=== PATIENT | male | born 1960 | race Caucasian/White ===

== ENCOUNTER 2018-10-07 09:07 | Outpatient (REF) | payer BC, SELFPAY ==
[2018-10-07 20:16] LABS: HCT 43.3 % (40.0-50.0); HGB 15.4 g/dL (13.5-17.5); Mean Corp. HGB Concentration 35.6 g/dL (32.0-36.0); Mean Corpuscular Hemoglobin 29.8 pg (27.0-33.0); Mean Corpuscular Volume 83.9 fL (80-95); Platelet Count 238 x1000/uL (130-400); RBC 5.16 m/cumm (4.50-6.00); RBC Distribution Width 12.8 % (11.8-14.1)
[2018-10-07 20:32] LABS: COMMENT (LAB VIEW ONLY) 46.88 mg/dL; Microalb ug/mg Crea 11.5 ug/mg Cr
[2018-10-07 20:36] LABS: Anion Gap 6.2 mmol/L (3-11); BUN 15 mg/dL (7-18); CO2 30.8 mmol/L (21.0-32.0); CREATININE 0.92 mg/dL (0.70-1.30); Calcium 8.9 mg/dL (8.5-10.1); Chloride 105 mmol/L (98-107); Glucose 87 mg/dL (70-100); Potassium 4.3 mmol/L (3.5-5.1); Sodium 142 mmol/L (136-145)
== END 2018-10-07 09:27 ==
LOC: NCHCN 09:07
PROVIDERS: PCP Physician Assistant; Visit Provider Physician Assistant Medical
DX: I10 Essential (primary) hypertension (principal)
CPT/HCPCS: 80048; 85027; 82043; 82570; 84443

== ENCOUNTER 2019-11-01 10:26 | Outpatient (REF) | payer BC, SELFPAY ==
[2019-11-01 19:22] LABS: Abs Immature Grans 0.04 k/cumm (0.0-0.09); Absolute Basophil Count 0.04 k/cumm (0.0-0.2); Absolute Eosinophil Count 0.11 k/cumm (0.0-0.7); Absolute Lymphocyte Count 1.72 k/cumm (1.2-3.4); Absolute Monocyte Count 0.56 k/cumm (0.11-0.7); Absolute Neutrophil Count 3.66 k/cumm (1.2-6.7); Basophils % 0.7; Eosinophils % 1.8; HCT 43.4 % (40.0-50.0); HGB 15.2 g/dL (13.5-17.5); Immature Grans % 0.7 %; Lymphocytes % 28.1; Mean Corpuscular Hemoglobin 29.9 pg (27.0-33.0); Mean Corpuscular Volume 85.3 fL (80-95); Mean Platelet Volume 9.8 fL (8.0-11.0); Monocytes % 9.1; Neutrophils % 59.6; Platelet Count 257 x1000/uL (130-400); RBC 5.09 m/cumm (4.50-6.00); RBC Distribution Width 12.6 % (11.8-14.1); White Blood Cell Count 6.13 k/cumm (4.4-10.8)
[2019-11-01 19:31] LABS: ALT 24 U/L (16-63); AST 18 U/L (15-37); Albumin 3.9 g/dL (3.4-5.0); Alkaline Phosphatase 57 U/L (46-116); Anion Gap 8.8 mmol/L (3-11); BUN 15 mg/dL (7-18); Bilirubin, Total 0.4 mg/dL (0.2-1.0); CO2 29.2 mmol/L (21.0-32.0); CREATININE 0.91 mg/dL (0.70-1.30); Calcium 8.7 mg/dL (8.5-10.1); Calculated LDL 115 mg/dL; Chloride 106 mmol/L (98-107); Cholesterol 175 mg/dL (<200); Glucose 89 mg/dL (74-106); HDL Cholesterol 38 mg/dL (40-60); Potassium 4.7 mmol/L (3.5-5.1); Sodium 144 mmol/L (136-145); Total Protein 7.2 g/dL (6.4-8.2); Triglyceride 112 mg/dL (<150)
== END 2019-11-01 10:46 ==
LOC: NCHCN 10:26
PROVIDERS: PCP Physician Assistant; Visit Provider Physician Assistant
DX: Z00.00 Encounter for general adult medical examination without abnormal findings (principal); I10 Essential (primary) hypertension; M17.0 Bilateral primary osteoarthritis of knee
CPT/HCPCS: 80053; 80061; 85025

== ENCOUNTER 2019-11-22 09:58 | Day surgery (SDC) | payer BC, SELFPAY ==
--- NOTE | 2019-11-22 07:13 | W.COLOREPORT ---
Date of service: 11/22/19 Time of Service: 11:48 Colonoscopy Report Date of procedure: 11/22/19 Pre-op diagnosis general: Colon Cancer Screening Post-op diagnosis procedure note: other (Polyps) Procedure: Colonoscopy Surgeon: Cassandra Clark Anesthesia proc note operative: other (General/ ASA 2/Denise Chan CRNA) Estimated blood loss (mL): 2 Pathology: other (transverse polyp and sigmoid colon) Complications: None Disposition: same day Indications: 59 y/o male with history of HTN presents for his first colonoscopy screening pre-op. He denies a family history of colon cancer. He denies any changes in bowel habits including bloody or black tarry stools, abdominal pain, diarrhea or constipation. Prep: Miralax/Dulcolax Procedure Start Time: 11:48 Procedure End Time: 12:10 Retraction Time: 13 minutes Findings: 2 small polyps Procedure Description: After informed consent was obtained the patient was taken to the procedure room and placed in a left decubitous position. Monitors were applied and a time out was done. The patients name, date of , procedure, allergies to medications and metal in their body was reviewed. The patient was then sedated. Once sedated and comfortable a rectal exam was done. External exam was normal. Internal exam revealed a normal sphincter tone and no palpable masses. The prostate felt smooth. The scope was then introduced and retro-flexed. No internal hemorrhoids were identified. There some hemorrhoidal tags. The scope was then advanced to the cecum without difficulty. The TI and appendiceal orifice were identified. The prep was adequate. The scope was then slowly retracted over 13 minutes back into the rectum. Polyps were removed with cold forceps in the transverse colon and in the sigmoid colon. There were no diverticula noted. The scope was removed and the patient was woken up and taken back to Same day surgery in stable condition. The patient tolerated the procedure well and there were no immediate complications. Follow up: The patient should follow up in 3-5 years unless they develop changes in bowel habits or other new gastrointestinal complaints.
--- NOTE | 2019-11-22 07:14 | W.PM.DSUDISC ---
Discharge Plan Disposition Patient Disposition: HOME Condition: Good Discharge Details Reason For Visit: Colon CAncer Screening Attending Provider: Cassandra Clark Primary Care Provider: Stephen Bose Home Meds and New Rx's Prescriptions: Continued lisinopril 10 mg tablet 10 mg PO DAILY RF: 0 ibuprofen 800 mg tablet 800 mg PO TID RF: 0 Discontinued polyethylene glycol 3350 17 gram/dose powder 238 g PO ONCE Qty: 238 RF: 0 bisacodyl [Dulcolax (bisacodyl)] 5 mg tablet,delayed release (DR/EC) 5 mg PO ONCE Qty: 4 RF: 0 Discharge Instructions Additional Instructions: Findings: 2 small polyps Follow up: 3-5 years Please call if you develop: fevers >101.5 Nausea or Vomiting Abdominal pain that is not transient DAY SURGERY UNIT POST ENDOSCOPY INSTRUCTIONS 1. Because there will be medication in your system for the next 24 hours, you may feel a little sleepy. Your coordination will be affected. Therefore: a. Do not drive or operate dangerous equipment for 24 hours. b. Do not drink alcohol beverages for 24 hours (not even beer). c. Plan to go home and rest for the day. 2. Generally there are no restrictions on your activity after a day or so has gone by, but you may feel a bit fatigued for a few days. 3 After you arrive home you may have a light meal and return to a normal diet as you can tolerate it without feeling sick to your stomach. 4. After surgery, you may feel pain or discomfort. This should be only transient, but if it persists please contact your doctor. 5. If there are any questions regarding the findings of your procedure, please feel free to contact your doctor. 6. If you are unable to contact your doctor with a problem, contact the hospital at [phone]. 7. Continue all your regular medications unless directed otherwise. I understand the above instructions and have no questions. Signature of Patient or Responsible Adult Escort Date/Time Name of Responsible Adult Escort Signature of Nurse Date/Time Activity:: Activity as Tolerated Diet:: As Tolerated Discharge Orders Discharge Orders: Discharge Order (Routine); Ordered 11/22/19 Ordered By: Cassandra Clark
[2019-11-22 10:12] VITALS: BP 137/83; PULSE 74; RESP 16; TEMP 36.6; O2SAT 96
[2019-11-22] MEDS: Lactated Ringers 1,000 ML 80 ML IV (10:37)
--- NOTE | 2019-11-22 11:50 | BOWEL_PTH ---
PATIENT: Mark Anthony Perkins LOC: [facility] U#:[id number] AGE/SX: 59/M ROOM: RE11/22/[address]: Cassandra Clark MD : [id number] BED: DIS: 11/22/2019 SPEC #: [id number] RECD: 11/22/19 12:45 STATUS: REANNA REQ #: [id number] PAVITHRA: 11/22/19 11:[address]: Cassandra Clark DEPT: Surgical Specimen RECD BY: Letty Lopez ENTERED: 11/22/19 12:47 SP TYPE: Bowel OTHR DR: Stephen Bose Tissues: 1 - BIOPSY BOWEL 2 - BIOPSY BOWEL Procedures: GROSS AND MICRO LEVEL 4 Comments: [id number]
[2019-11-22 12:47] VITALS: BP 141/86; PULSE 65; RESP 16; TEMP 36.5; O2SAT 99
== END 2019-11-22 13:05 | disposition home or self-care (01) ==
LOC: SUR 10:00
PROVIDERS: PCP Internal Medicine; Visit Provider Surgery
PROC: 0DJD8ZZ Inspection of Lower Intestinal Tract, Via Natural or Artificial Opening Endoscopic (ICD-10-PCS; CPT 45378; principal; 2019-11-22 10:45)
DX: Z12.11 Encounter for screening for malignant neoplasm of colon (principal); K63.5 Polyp of colon; I10 Essential (primary) hypertension
CPT/HCPCS: 45380; 88305

== ENCOUNTER 2021-04-02 10:43 | Outpatient (REF) | payer BC, SELFPAY ==
[2021-04-02 21:08] LABS: ALT 31 U/L (16-63); AST 18 U/L (15-37); Albumin 3.9 g/dL (3.4-5.0); Alkaline Phosphatase 58 U/L (46-116); Anion Gap 9.6 mmol/L (3-11); BUN 18 mg/dL (7-18); Bilirubin, Total 0.6 mg/dL (0.2-1.0); CO2 26.4 mmol/L (21.0-32.0); Calcium 8.9 mg/dL (8.5-10.1); Calculated LDL 132 mg/dL (<100); Chloride 106 mmol/L (98-107); Cholesterol 213 mg/dL (<200); Glucose 95 mg/dL (74-106); HDL Cholesterol 43 mg/dL (40-60); Sodium 142 mmol/L (136-145); Total Protein 7.1 g/dL (6.4-8.2); Triglyceride 193 mg/dL (<150)
== END 2021-04-02 10:44 | disposition home or self-care (01) ==
LOC: NCHCN 10:43
PROVIDERS: PCP Internal Medicine; Visit Provider Nurse Practitioner Family
DX: I10 Essential (primary) hypertension (principal); Z13.220 Encounter for screening for lipoid disorders
CPT/HCPCS: 80053; 80061

== ENCOUNTER 2022-07-09 08:51 | Outpatient (REF) | payer BC, SELFPAY ==
[2022-07-09 19:40] LABS: ALT 45 U/L (16-63); AST 25 U/L (15-37); Alkaline Phosphatase 58 U/L (46-116); Anion Gap 7.7 mmol/L (3-11); BUN 19 mg/dL (7-18); Bilirubin, Total 0.6 mg/dL (0.2-1.0); CO2 29.3 mmol/L (21.0-32.0); Calcium 8.9 mg/dL (8.5-10.1); Calculated LDL 95 mg/dL (<100); Chloride 104 mmol/L (98-107); Cholesterol 153 mg/dL (<200); Estimated GFR 86.16 (mL/min/1.73m2); Glucose 97 mg/dL (74-106); HDL Cholesterol 43 mg/dL (40-60); Potassium 4.3 mmol/L (3.5-5.1); Sodium 141 mmol/L (136-145); Total Protein 7.6 g/dL (6.4-8.2); Triglyceride 77 mg/dL (<150)
[2022-07-10 18:02] LABS: PSA, Screening 0.5 ng/mL (<=4.5)
== END 2022-07-09 08:52 | disposition home or self-care (01) ==
LOC: NCHCN 08:51
PROVIDERS: PCP Internal Medicine; Visit Provider Nurse Practitioner Family
DX: E78.5 Hyperlipidemia, unspecified (principal); I10 Essential (primary) hypertension; Z12.5 Encounter for screening for malignant neoplasm of prostate
CPT/HCPCS: 80053; 80061; 84153

== ENCOUNTER 2022-09-16 13:12 | Outpatient (REF) | payer BC, SELFPAY ==
[2022-09-16 19:41] LABS: Anion Gap 5.7 mmol/L (3-11); BUN 24 mg/dL (7-18); CO2 31.3 mmol/L (21.0-32.0); CREATININE 1.2 mg/dL (0.70-1.30); Calcium 8.8 mg/dL (8.5-10.1); Chloride 105 mmol/L (98-107); Estimated GFR 69.23 (mL/min/1.73m2); Glucose 123 mg/dL (74-106); Potassium 3.9 mmol/L (3.5-5.1); Sodium 142 mmol/L (136-145)
== END 2022-09-16 13:13 | disposition home or self-care (01) ==
LOC: NCHCN 13:12
PROVIDERS: PCP Internal Medicine; Visit Provider Nurse Practitioner Family
DX: I10 Essential (primary) hypertension (principal)
CPT/HCPCS: 80048

== ENCOUNTER 2024-02-09 12:27 | Outpatient (REF) | payer BC, SELFPAY ==
[2024-02-09 20:44] LABS: ALT 35 U/L (16-63); AST 22 U/L (15-37); Albumin 4.1 g/dL (3.4-5.0); Alkaline Phosphatase 52 U/L (46-116); Anion Gap 8.1 mmol/L (3-11); BUN 25 mg/dL (7-18); Bilirubin, Total 0.7 mg/dL (0.2-1.0); CO2 28.9 mmol/L (21.0-32.0); CREATININE 1.1 mg/dL (0.70-1.30); Calcium 9.1 mg/dL (8.5-10.1); Chloride 104 mmol/L (98-107); Estimated GFR 76.37 (mL/min/1.73m2); Glucose 114 mg/dL (74-106); Potassium 3.9 mmol/L (3.5-5.1); Sodium 141 mmol/L (136-145); Total Protein 7.5 g/dL (6.4-8.2)
== END 2024-02-09 12:28 | disposition home or self-care (01) ==
LOC: NCHCN 12:27
PROVIDERS: PCP Internal Medicine; Visit Provider Nurse Practitioner Family
DX: I10 Essential (primary) hypertension (principal)
CPT/HCPCS: 80053

== ENCOUNTER 2024-07-26 12:58 | Outpatient (CLI) | payer BC, SELFPAY ==
--- NOTE | 2024-07-26 | DI.RAD_ITS ---
Exam(s) XR KNEE RT 4V AP,LAT,HOPE,PAT EXAM: XR KNEE RT 4V AP,LAT,HOPE,PAT CLINICAL HISTORY: PAIN RT KNEE JOINT, M25.561. TECHNIQUE: 2D digital imaging was performed. COMPARISON: No exams were available for comparison FINDINGS: Four views No evidence of fracture nor prominent joint effusion. There is advanced narrowing of the medial compartment seen on the weight-bearing view. Lateral aleksandr rtment exhibits normal height. There is significant lateral tilting of the patella seen on the merch ant's view there are-moderate degenerative changes in the patellofemoral compartment. No osteochondr al defects. IMPRESSION: Degenerative changes as above. Also significant lateral tilting of the patella. DATA REPOSITORY: RADIATION DOSE DELIVERED:
== END 2024-07-26 13:18 ==
LOC: DI 12:59
PROVIDERS: PCP Internal Medicine; Visit Provider Nurse Practitioner Family
DX: M25.561 Pain in right knee (principal)
CPT/HCPCS: 73564

== ENCOUNTER 2024-08-02 18:22 | Outpatient (REF) | payer BC, SELFPAY ==
[2024-08-02 21:47] LABS: Calculated LDL 136 mg/dL (<100); Cholesterol 203 mg/dL (<200); HDL Cholesterol 45 mg/dL (40-60); Triglyceride 114 mg/dL (<150)
[2024-08-03 18:51] LABS: PSA, Screening 0.5 ng/mL (<=4.5)
== END 2024-08-02 18:23 | disposition home or self-care (01) ==
LOC: NCHCN 18:22
PROVIDERS: PCP Internal Medicine; Visit Provider Nurse Practitioner Family
DX: E78.5 Hyperlipidemia, unspecified (principal); Z12.5 Encounter for screening for malignant neoplasm of prostate
CPT/HCPCS: 80061; 84153

== ENCOUNTER 2025-01-24 12:23 | Outpatient (REF) | payer BC, SELFPAY ==
[2025-01-24 19:30] LABS: ALT 29 U/L (16-63); AST 24 U/L (15-37); Alkaline Phosphatase 55 U/L (46-116); Anion Gap 6.4 mmol/L (3-11); BUN 22 mg/dL (7-18); Bilirubin, Total 0.8 mg/dL (0.2-1.0); CO2 30.6 mmol/L (21.0-32.0); CREATININE 1.1 mg/dL (0.70-1.30); Calcium 9.4 mg/dL (8.5-10.1); Calculated LDL 84 mg/dL (<100); Chloride 106 mmol/L (98-107); Cholesterol 153 mg/dL (<200); Glucose 101 mg/dL (74-106); HDL Cholesterol 45 mg/dL (>or=40); Sodium 143 mmol/L (136-145); Total Protein 7.3 g/dL (6.4-8.2); Triglyceride 124 mg/dL (<150)
== END 2025-01-24 12:24 | disposition home or self-care (01) ==
LOC: NCHCN 12:23
PROVIDERS: PCP Internal Medicine; Visit Provider Nurse Practitioner Family
DX: E78.5 Hyperlipidemia, unspecified (principal); I10 Essential (primary) hypertension
CPT/HCPCS: 80053; 80061

== ENCOUNTER 2025-07-25 20:32 | Outpatient (REF) | payer BC, SELFPAY ==
[2025-07-25 20:55] LABS: Abs Immature Grans 0.01 10^3/uL (0.0-0.06); HCT 42.9 % (40.0-50.0); HGB 15.0 g/dL (13.5-17.5); Immature Grans % 0.2 %; MCH 29.5 pg (27.0-33.0); MCHC 35.0 % (32.0-36.0); MCV 84 fL (80-95); MPV 9.7 fL (8.0-11.0); Platelet Count 232 10^3/uL (130-400); RBC 5.08 10^6/uL (4.36-5.78); RDW 12.1 % (11.8-14.1); RDW-SD 36.6 fL; WBC 4.95 10^3/uL (4.4-10.8)
[2025-07-25 21:48] LABS: ALT 30 U/L (16-63); AST 18 U/L (15-37); Albumin 4.0 g/dL (3.4-5.0); Alkaline Phosphatase 55 U/L (46-116); Anion Gap 10.6 mmol/L (3-11); BUN 23 mg/dL (7-18); Bilirubin, Total 0.7 mg/dL (0.2-1.0); CO2 27.4 mmol/L (21.0-32.0); Calcium 8.9 mg/dL (8.5-10.1); Calculated LDL 64 mg/dL (<100); Chloride 104 mmol/L (98-107); Cholesterol 123 mg/dL (<200); Estimated GFR 84.57 (mL/min/1.73m2); Glucose 98 mg/dL (74-106); HDL Cholesterol 40 mg/dL (>or=40); Potassium 4.0 mmol/L (3.5-5.1); Sodium 142 mmol/L (136-145); Total Protein 7.3 g/dL (6.4-8.2); Triglyceride 95 mg/dL (<150)
[2025-07-26 20:45] LABS: Hepatitis C Ab w Rflx HCV PCR Negative (Negative)
[2025-07-26 20:46] LABS: HIV-1/2 Ag & Ab Screen Negative (Negative)
== END 2025-07-25 20:33 | disposition home or self-care (01) ==
LOC: NCHCN 20:32
PROVIDERS: PCP Internal Medicine; Visit Provider Nurse Practitioner Family
DX: E78.2 Mixed hyperlipidemia (principal); Z13.0 Encounter for screening for diseases of the blood and blood-forming organs and certain disorders involving the immune mechanism
CPT/HCPCS: 80053; 80061; 86803; 87389; 85025